=== PATIENT | male | born 1945 | race Caucasian/White ===

== ENCOUNTER 2022-08-11 07:22 | Emergency (ER) | payer MEDICARE ==
[~2022-08-11] VITALS: Ht 172.7 cm; Wt 75.0 kg
[~2022-08-11 07:22] MED LIST: ACIDOPHILUS100 MG PO; ASPI81TA52 PO; LOP25T PO; MULT-1085 PO; OMEG-79 PO; OMEG1CAP2 PO; OMEP20CA15 PO; RIVA20TA PO; TRAZ-256 PO; UBID1CAP54 PO; XAL0.005OS RIGHTEYE
[2022-08-11 07:47] VITALS: BP 108/75
[2022-08-11] MEDS ORDERED: LIDOcaine 5% patch TP STA (10:48)
[2022-08-11] MEDS ORDERED: HYDROcodone/acetaminophen 5mg/325mg tablet PO ONE (10:50)
[2022-08-11] MEDS ORDERED: TRAM50TA2 PO (10:51)
[2022-08-11] MEDS ORDERED: LIDO700A32 TOP (10:51)
[2022-08-11] MEDS ORDERED: traMADol 50MG tablet PO ONE (10:55)
== END 2022-08-11 11:15 | disposition home or self-care (01) ==
LOC: ER 07:22
DX: M54.59 Other low back pain (principal); E78.00 Pure hypercholesterolemia, unspecified; I10 Essential (primary) hypertension; F31.9 Bipolar disorder, unspecified; Z79.899 Other long term (current) drug therapy; Z79.1 Long term (current) use of non-steroidal anti-inflammatories (NSAID)
CPT/HCPCS: 99283